=== PATIENT | female | born 1970 | race Caucasian/White ===

== ENCOUNTER 2016-06-15 10:02 | Outpatient (CLI) | payer OTHER ==
[2016-06-15 10:52] LABS: eGFR (African) > 60; eGFR (Non-African) > 60
== END 2016-06-15 10:04 ==
LOC: LAB 10:02
PROVIDERS: ATTEND Internal Medicine
DX: E10.65 Type 1 diabetes mellitus with hyperglycemia (principal)
CPT/HCPCS: 36415; 80053; 83036; 84443

== ENCOUNTER 2016-08-04 14:30 | Outpatient (CLI) | payer OTHER ==
--- NOTE | 2016-08-04 18:16 | Diagnostic Imaging Report ---
BLANCA WRAY [facility] [address] [address] [facility] [address] [address] Report Submission Date: Aug 04, 2016 5:14:09 PM CDT Patient Study Name: VALENTÍN MARTINEZ Date: Aug 04, 2016 2:45:41 PM CDT Modality Type: CR Gender: F Description: SPINE : 66 Institution: [facility] Physician: BLANCA WRAY Thoracic spine - three views Clinical history: Injury about 2 months ago. Pain. Findings: Examination of the thoracic spine in AP, lateral and lateral swimmer' s views demonstrates the vertebrae to be anatomically aligned. Pedicles are intact and the paravertebral soft tissues are within normal limits. There is no evident fracture. Impression: 1. Negative thoracic spine. Electronically signed on Aug 04, 2016 5:14:09 PM CDT by: Oswaldo MAJANO
--- NOTE | 2016-08-04 18:17 | Diagnostic Imaging Report ---
BLANCA WRAY [facility] [address] [facility] [address] [address] Report Submission Date: Aug 04, 2016 5:12:45 PM CDT Patient Study Name: VALENTÍN MARTINEZ Date: Aug 04, 2016 2:42:26 PM CDT Modality Type: CR Gender: F Description: SPINE : 66 Institution: [facility] Physician: BLANCA WRAY Lumbar spine - three views Clinical history: Injury about 2 months ago. Low back pain. Findings: Examination of the lumbar spine in AP, lateral and lateral coned- down views demonstrates vertebrae to be anatomically aligned. Pedicles are intact and the paravertebral soft tissues are within normal limits. There is no evident fracture. Impression: 1. Negative lumbar spine. Electronically signed on Aug 04, 2016 5:12:45 PM CDT by: Oswaldo MAJANO
== END 2016-08-04 14:32 ==
LOC: RAD 14:30
PROVIDERS: ATTEND Physician Assistant
DX: M54.6 Pain in thoracic spine (principal); M54.5 Low back pain
CPT/HCPCS: 72072; 72100

== ENCOUNTER 2016-10-20 08:00 | Outpatient (CLI) | payer OTHER ==
[2016-10-20 08:44] LABS: eGFR (African) > 60; eGFR (Non-African) > 60
== END 2016-10-20 08:02 ==
LOC: LAB 08:00
PROVIDERS: ATTEND Internal Medicine
DX: E10.65 Type 1 diabetes mellitus with hyperglycemia (principal)
CPT/HCPCS: 36415; 80053; 80061; 83036; 84443

== ENCOUNTER 2016-12-25 09:38 | Outpatient (CLI) | payer OTHER | END 2016-12-25 11:00 | LOC: LAB 09:38 | PROVIDERS: ATTEND Internal Medicine | DX: E03.9 Hypothyroidism, unspecified (principal) | CPT/HCPCS: 36415; 82728; 83036; 84443; 84481 ==

== ENCOUNTER 2017-08-22 07:14 | Outpatient (CLI) | payer OTHER ==
[2017-08-22 08:04] LABS: eGFR (African) > 60; eGFR (Non-African) > 60
== END 2017-08-22 07:15 ==
LOC: LAB 07:14
PROVIDERS: ATTEND Internal Medicine
DX: E10.65 Type 1 diabetes mellitus with hyperglycemia (principal); E03.9 Hypothyroidism, unspecified
CPT/HCPCS: 36415; 80053; 80061; 83036; 84443

== ENCOUNTER 2017-12-12 08:03 | Outpatient (CLI) | payer OTHER ==
[2017-12-12 09:14] LABS: eGFR (African) > 60; eGFR (Non-African) > 60
== END 2017-12-12 08:05 ==
LOC: LAB 08:03
PROVIDERS: ATTEND Internal Medicine
DX: E10.65 Type 1 diabetes mellitus with hyperglycemia (principal); E03.9 Hypothyroidism, unspecified
CPT/HCPCS: 36415; 80053; 83036; 84443